=== PATIENT | female | born 1995 | race African-American/Black ===

== ENCOUNTER 2020-04-18 18:23 | Emergency (ER) | payer OTHER ==
[~2020-04-18] VITALS: Ht 160 cm; Wt 55.0 kg
[2020-04-18 18:27] VITALS: BP 120/72
[2020-04-18] MEDS ORDERED: IBUPROFEN 600MG TABLET PO SCH (21:00)
== END 2020-04-18 21:34 | disposition home or self-care (01) ==
LOC: ER 18:23
DX: S21.219A Laceration without foreign body of unspecified back wall of thorax without penetration into thoracic cavity, initial encounter (principal); S00.83XA Contusion of other part of head, initial encounter; M25.562 Pain in left knee; M25.561 Pain in right knee; G89.11 Acute pain due to trauma; R00.0 Tachycardia, unspecified; Y04.2XXA Assault by strike against or bumped into by another person, initial encounter; Y93.89 Activity, other specified; Y92.89 Other specified places as the place of occurrence of the external cause
CPT/HCPCS: 70486; 93005; 99284; Z7610